=== PATIENT | male | born 1970 | race Caucasian/White ===

== ENCOUNTER 2023-08-02 02:12 | Day surgery (SDC) | payer OTHER, SELFPAY ==
[2023-07-20 13:40] VITALS: BMI 29.8
[2023-08-02 11:15] VITALS: BP 130/97; PULSE 92; RESP 16; TEMP 36.7; O2SAT 98
[2023-08-02] MEDS: LACTATED RINGERS 1,000 ML 150 ML IV CONT (11:25)
--- NOTE | 2023-08-02 11:30 | PM.HPGS ---
History of Present Illness History of Present Illness Consent: Risks, benefits, and alternatives have been discussed and questions answered. Patient agrees to proceed with procedure. Chief complaint: neoplasm screening Narrative: Billy Dobson is a 53 year old male Presents for screening colonoscopy. Patient's current weight appetite and bowel movements are normal. Patient denies abdominal pain. He has had no bleeding. Family history is noncontributory. Review of Systems Review of Systems: review of systems noncontributory. [facility] Social History Social History Smoking status: Never smoker Alcohol intake: current Substance use: never Substance use type: does not use Living arrangements: with family Spiritual care concerns: No Meds Home Medications and Allergies Home Medications Medication Instructions Recorded Confirmed Type multivit with minerals-iron 18 1 tablet PO DAILY 07/20/23 08/02/23 History mg-folic ac 400 mcg-vit K 25 mcg tablet (Adults Multivitamin) Allergies Allergy/AdvReac Type Severity Reaction Status Date / Time No Known Allergies Allergy Verified 08/02/23 11:13 Vital Signs Vital Signs - 24 hr 08/02/23 11:15 Temperature 98.0 F Pulse Rate 92 Respiratory Rate 16 Blood Pressure 130/97 H Pulse Oximetry 98 Oxygen Delivery Room Air Exam Narrative: Physical exam reveals patient to be alert. Vital signs stable. HEENT exam is unremarkable. Patient is anicteric. Lungs are clear to auscultation and percussion. Heart is without murmur or extra sounds. Abdomen bowel sounds present soft nontender no organomegaly. Digital external rectal exam normal. Assessment and Plan Assessment and plan (1) Encounter for screening colonoscopy: Code(s): Z12.11 - Encounter for screening for malignant neoplasm of colon Status: Acute Assessment and Plan: Patient presents today for screening colonoscopy. he appears to be at average risk for colon polyps. Further recommendations may be given after endoscopy.
--- NOTE | 2023-08-02 11:40 | P.PNAN_ITS ---
Anes - Initial Pre Proc Eval Procedure: Operation Date: 08/02/23 12:30 Proposed Procedures p Screening Colonoscopy - Yvon Barbosa MD Date/Time: 08/02/23 11:40 Surgeon: Yvon Barbosa MD Pre Op Diagnosis: neoplasm screening Patient Data Age: 53 Gender: M Height: 1.7 m Weight: 84.4 kg Last Vital Signs Temp 98.0 F 08/02/23 11:15 Pulse 92 08/02/23 11:15 Resp 16 08/02/23 11:15 BP 130/97 H 08/02/23 11:15 Pulse Ox 98 08/02/23 11:15 O2 Del Method Room Air 08/02/23 11:15 Allergies Allergy/AdvReac Type Severity Reaction Status Date / Time No Known Allergies Allergy Verified 08/02/23 11:13 Home Medications Medication Instructions Recorded Confirmed Type multivit with minerals-iron 18 1 tablet PO DAILY 07/20/23 08/02/23 History mg-folic ac 400 mcg-vit K 25 mcg tablet (Adults Multivitamin) Patient hx anesthesia problems: none Family hx anesthesia problems: none Results Review: All pre-operative results and documents have been reviewed as part of the pre- operative evaluation. PMF Social History Social History Smoking status: Never smoker Alcohol intake: current Substance use: never Substance use type: does not use Living arrangements: with family Spiritual care concerns: No Anes - Eval Final PreProcedure Day of Procedure 08/02/23 11:40 Patient weight: overweight Heart: regular rate and rhythm Lungs: clear to auscultation Neurological: alert and oriented Last oral intake: >/= 8 hours ASA classification: II Emergent: no Anesthetic plan: proceed Anesthesia type and monitoring: general GIVS and standard monitoring Results Review: All pre-operative results and documents have been reviewed as part of the pre- operative evaluation. Informed Consent: The patient's anesthetic plan and its attendant risks and benefits were discussed with the patient/family/POA. Questions were solicited and answers provided to the satisfaction of the patient/family/POA.
[2023-08-02 12:01] VITALS: BP 134/91; PULSE 101; RESP 27; O2SAT 95
[2023-08-02 12:11] VITALS: BP 134/89; PULSE 90; RESP 24; O2SAT 100
[2023-08-02 12:21] VITALS: BP 139/96; PULSE 79; RESP 22; O2SAT 100
== END 2023-08-02 12:27 | disposition home or self-care (01) ==
PROVIDERS: PCP Family Medicine Sports Medicine; Visit Provider Internal Medicine Gastroenterology
PROC: 0DJD8ZZ Inspection of Lower Intestinal Tract, Via Natural or Artificial Opening Endoscopic (ICD-10-PCS; CPT 45378; principal; 2023-08-02 12:30)
DX: Z12.11 Encounter for screening for malignant neoplasm of colon (principal); K64.8 Other hemorrhoids
CPT/HCPCS: 45378; J2704; J7120